=== PATIENT | male | born 1960 | race Caucasian/White ===

== ENCOUNTER 2018-05-12 06:32 | Outpatient (CLI) | payer OTHER ==
[~2018-05-12] VITALS: Ht 180.3 cm; Wt 82.1 kg
[2018-05-12] MEDS ORDERED: RIVA20TA PO ×2 (10:37)
[2018-05-12] MEDS ORDERED: METO-387 PO ×2 (10:37)
[2018-05-12] MEDS ORDERED: ASPI-586 PO ×2 (10:37)
[2018-05-12] MEDS ORDERED: PANT40TA3 PO ×2 (10:37)
[2018-05-12] MEDS ORDERED: ATOR40TA70 PO ×2 (10:37)
[2018-05-12] MEDS ORDERED: FLEC150T15 PO ×2 (10:37)
[2018-05-12] MEDS ORDERED: VALA500T4 PO ×2 (10:37)
[2018-05-13] MEDS ORDERED: TAMS0.4C98 PO ×2 (10:33)
[2018-05-13] MEDS ORDERED: HYDR-3870 PO ×2 (10:33)
[2018-05-13] MEDS ORDERED: NITR-65 PO ×2 (10:33)
== END 2018-05-12 12:19 | disposition home or self-care (01) ==
LOC: PREOP 06:32
PROVIDERS: ATTEND Urology
DX: Z01.818 Encounter for other preprocedural examination (principal)

== ENCOUNTER 2018-05-13 06:15 | Day surgery (SDC) | payer OTHER ==
[~2018-05-13] VITALS: Ht 180.3 cm; Wt 76.2 kg
[~2018-05-13 06:15] MED LIST: ASPI-586 PO; ATOR40TA70 PO; FLEC150T15 PO; METO-387 PO; PANT40TA3 PO; RIVA20TA PO; VALA500T4 PO
[2018-05-13] MEDS ORDERED: LACTATED RINGERS 1,000 ML IV PRN (06:20)
[2018-05-13] MEDS ORDERED: cefTRIAXone FOR IV USE 1,000 MG in NS (IVPB) 50 ML IV ONE (06:30)
--- NOTE | 2018-05-13 07:13 | Progress Note-Pre Operative ---
Pre-Operative Progress Note H&P Reviewed The H&P was reviewed, patient examined and no changes noted. Date Seen by Provider: May 13, 2018 Time Seen by Provider: 07:13 Date H&P Reviewed: May 13, 2018 Time H&P Reviewed: 07:13 Pre-Operative Diagnosis: BILATERAL RENAL STONES MACKENZIE SHAY MD May 13, 2018 07:13
[2018-05-13 07:20] VITALS: BP 120/68
[2018-05-13] MEDS ORDERED: ONDANSETRON 4 MG/2 ML (SDV) Z0FRAN ONE (07:23)
[2018-05-13] MEDS ORDERED: proPOfol 200 MG/20 ML (DIPRIVAN) VIAL IV ONE (07:23)
[2018-05-13] MEDS ORDERED: fentaNYL INJECTION 100 MCG/2 ML AMP ONE (07:23)
[2018-05-13] MEDS ORDERED: MIDAZOLAM 2 MG/2 ML (VERSED) VIAL ONE (07:23)
[2018-05-13] MEDS ORDERED: LIDOCAINE PF 2% 5 ML (XYLOCAINE) VIAL ONE (07:23)
[2018-05-13] MEDS ORDERED: SEVOFLURANE (ULTANE) 15 ML INHAL SOLN ONE ×3 (07:23→08:13)
[2018-05-13] MEDS ORDERED: FUROSEMIDE 40 MG/4 ML INJ (LASIX) ONE (07:24)
[2018-05-13] MEDS ORDERED: KETOROLAC 30 MG/ML VIAL ONE (07:24)
--- NOTE | 2018-05-13 07:32 | Progress Note-Post Operative ---
Post-Operative Progess Note Surgeon (s)/Buck Swamper (s) Surgeon MACKENZIE SHAY MD Buck Swamper: NONE Pre-Operative Diagnosis BILATERAL RENAL STONES Post-Operative Diagnosis SAME Procedure & Operative Findings Date of Procedure 05/13/18 Procedure Performed/Findings RT ESWL Anesthesia Type GENERAL Estimated Blood Loss Estimated blood loss (mL): NONE Specimens/Packing Specimens Removed NONE Packing: NONE MACKENZIE SHAY MD May 13, 2018 07:32
--- NOTE | 2018-05-13 07:34 | Discharge Inst-Urology ---
Discharge Inst-Urology Discharge Medications New, Converted, or Re-newed RX: RX on Chart Patient Instructions/Follow Up Plan Please make appointment to been seen in office Thursday 05/18, KUB prior to it KUB on way home Post ESWL instructions Increase oral fluids for 48 hours and then as needed. Diet and Activity as tolerated. If questions or concerns contact your physician Or seek help at emergency department. MACKENZIE SHAY MD May 13, 2018 07:34
--- NOTE | 2018-05-13 08:22 | Diagnostic Imaging Report ---
Indication: Nephrolithiasis KUB 705 AM There is a cluster of stone fragments projecting over the lower pole in the right kidney. There is a 6 mm stone and some of the small fragments projecting over the inferior pole of the left kidney. The bowel gas pattern is normal. Impression: Bilateral nephrolithiasis. Dictated by: Dictated on workstation # [id number]
[2018-05-13] MEDS ORDERED: morphine INJ 10 MG/ML 1ML (SYR OR VIAL) IVP ONE (08:45)
[2018-05-13] MEDS ORDERED: MEPERIDINE (DEMEROL) INJ 50 MG/ML IVP ONE (08:45)
[2018-05-13] MEDS ORDERED: ONDANSETRON 4 MG/2 ML (SDV) Z0FRAN IVP PRN (08:45)
[2018-05-13 09:25] VITALS: BP 130/80
--- NOTE | 2018-05-13 09:50 | Anesthesia-General Post-Op ---
General Patient Condition Mental Status/LOC: Same as Preop Cardiovascular: Satisfactory Nausea/Vomiting: Absent Respiratory: Satisfactory Pain: Controlled Complications: Absent Post Op Complications Complications None Follow Up Care/Instructions Patient Instructions None needed. Anesthesia/Patient Condition Patient Condition Patient is doing well, no complaints, stable vital signs, no apparent adverse anesthesia problems. No complications reported per nursing. LORAINE CUEVAS CRNA May 13, 2018 09:50
[2018-05-13 09:55] VITALS: BP 124/84
[2018-05-13 10:25] VITALS: BP 120/85
[2018-05-13] MEDS ORDERED: NITR-65 PO ×2 (10:33)
[2018-05-13] MEDS ORDERED: TAMS0.4C98 PO ×2 (10:33)
[2018-05-13] MEDS ORDERED: HYDR-3870 PO ×2 (10:33)
--- NOTE | 2018-05-13 13:48 | OPERATIVE REPORT ---
DATE OF SERVICE: 05/13/2018 PREOPERATIVE DIAGNOSIS: Bilateral renal stones. POSTOPERATIVE DIAGNOSIS: Bilateral renal stones. OPERATION PERFORMED: Right ESWL. ANESTHESIA: General. COMPLICATIONS: None. PROCEDURE: Under satisfactory sedation and the patient in supine position on the ESWL table, the right mid renal pelvic stone was localized. Shocks were given at level kV o f4. Total of 2500 shocks completely fragmented the stone that was hardly visualized. The patient received 40 mg of Lasix and 30 mg of Toradol IV at the end of the procedure. He tolerated the procedure and anesthesia well and was sent to the recovery room in stable condition. PLAN: We will see him on Friday to check if he needs another ESWL. This was fully explained to the and to the patient preoperatively. Job ID: [id number] DocumentID: [id number] Dictated Date: 05/13/2018 09:19:55 Sales Development Executive Date: 05/13/2018 13:47:40 Dictated By: MACKENZIE SHAY MD
== END 2018-05-13 10:50 | disposition home or self-care (01) ==
LOC: SDC 06:15
PROVIDERS: ATTEND Urology
DX: N20.0 Calculus of kidney (principal); Z11.2 Encounter for screening for other bacterial diseases; N40.0 Benign prostatic hyperplasia without lower urinary tract symptoms; I25.10 Atherosclerotic heart disease of native coronary artery without angina pectoris; I10 Essential (primary) hypertension; I48.91 Unspecified atrial fibrillation; J45.909 Unspecified asthma, uncomplicated; G47.33 Obstructive sleep apnea (adult) (pediatric); K21.9 Gastro-esophageal reflux disease without esophagitis; Z79.899 Other long term (current) drug therapy; Z79.82 Long term (current) use of aspirin
CPT/HCPCS: 74018; 87081

== ENCOUNTER 2018-05-18 15:46 | Outpatient (RCR) | payer OTHER ==
[~2018-05-18 15:46] MED LIST changes: -RIVA20TA PO; +RIVA20TA2 PO
== END 2018-08-16 | disposition home or self-care (01) ==
LOC: LAB 15:46
PROVIDERS: ATTEND Urology
DX: N20.0 Calculus of kidney (principal)
CPT/HCPCS: 36415; 82140; 82340; 82507; 82570; 83735; 83945; 83986; 84105; 84133; 84300; 84392; 84560; 88300

== ENCOUNTER → 2018-05-18 | Outpatient (CLI) | payer OTHER ==
[~2018-05-18] MED LIST changes: +HYDR-3870 PO; +NITR-65 PO; +TAMS0.4C98 PO
--- NOTE | 2018-05-18 14:10 | Diagnostic Imaging Report ---
INDICATION: Status post lithotripsy five days ago. TIME OF EXAM: 1:06 p.m. COMPARISON: Correlation is made with prior study from 05/13/2018. FINDINGS: Calcific fragments overlie the lower poles of both kidneys. This appears to be similar to the examination of five days earlier. No definite calculi along the expected course of the ureters are identified. The bowel gas pattern is unremarkable. IMPRESSION: Stable appearance to bilateral renal calculi when compared with the exam of five days earlier. Dictated by: Dictated on workstation # [id number]
== END ==
LOC: RAD 12:31
PROVIDERS: ATTEND Urology
DX: N20.0 Calculus of kidney (principal)
CPT/HCPCS: 74018